=== PATIENT | female | born 1975 | race Hispanic/Latino ===

== ENCOUNTER 2019-05-13 10:53 | Observation (INO) | payer BC, OTHER ==
[~2019-05-13] VITALS: Ht 170.2 cm; Wt 146.4 kg
[2019-05-13 11:16] LABS: APPEARANCE,URINE Cloudy (CLEAR); BILIRUBIN,URINE Negative (NEGATIVE); COLOR,URINE Yellow (YELLOW); GLUCOSE, URINE (UA) Negative (NEGATIVE); KETONES,URINE Negative (NEGATIVE); LEUKOCYTE ESTERASE ,URINE Small (NEGATIVE); NITRATE,URINE Negative (NEGATIVE); OCCULT BLOOD,URINE Small (NEGATIVE); PH,URINE 5.5 (5.0-8.0); PROTEIN,URINE POS 1+ mg/dL (NEGATIVE)
[2019-05-13] MEDS ORDERED: MORPHINE SULFATE 4 MG/1ML SYG ONE ×2 (11:24→14:26)
[2019-05-13] MEDS ORDERED: ONDANSETRON HCL 4 MG/2 ML VIAL ONE (11:24)
[2019-05-13] MEDS ORDERED: SODIUM CHLORIDE 0.9% 1000ML 1,000 ML IV ONE (11:27)
[2019-05-13 11:28] LABS: BASOPHILS % (AUTO) 0.9 % (0.0-5.0); EOSINOPHILS % (AUTO) 1.2 % (0.0-8.0); HEMATOCRIT 36.5 % (36-48); LYMPHOCYTES % (AUTO) 22.4 % (21.0-51.0); MEAN CORPUSCULAR HEMOGLOBIN 30.7 pg (27.0-33.0); MEAN CORPUSCULAR HGB CONC 35.3 g/dL (32.0-36.0); MEAN CORPUSCULAR VOLUME 86.8 fL (79-99); MONOCYTES % (AUTO) 9.2 % (3.0-13.0); NEUTROPHILS % (AUTO) 66.3 % (40.0-77.0); PLATELET COUNT (AUTO) 256 K/uL (130-400); RED CELL DISTRIBUTION WIDTH 13.5 % (11.0-15.5); WHITE BLOOD COUNT (AUTO) 8.1 K/uL (4.8-10.8)
[2019-05-13 11:33] LABS: CREATININE 0.8 mg/dL (0.5-1.5); POTASSIUM 4.6 mmol/L (3.5-5.1)
[2019-05-13 11:35] LABS: BACTERIA,URINE Rare /HPF (None Seen); SQUAMOUS EPITHELIAL CELL,UR Few /HPF (0-2); WBC,URINE 0-1 /HPF (0-1)
[2019-05-13 11:39] LABS: ALBUMIN 2.9 g/dL (3.5-5.0); BILIRUBIN,TOTAL 0.8 mg/dL (0.2-1.0); TOTAL PROTEIN, SERUM 7.6 g/dL (6.0-8.3)
[2019-05-13] MEDS ORDERED: 1/2 NORMAL SALINE 1,000 ML IV ONE (16:52)
[2019-05-13 17:05] VITALS: BP 163/97
[2019-05-13] MEDS ORDERED: 1/2 NORMAL SALINE 1,000 ML IV SCH (17:30)
[2019-05-13] MEDS ORDERED: MORPHINE-NS 50 MG/50 ML 50 ML IV PRN ×2 (17:30)
[2019-05-13] MEDS ORDERED: ONDANSETRON HCL 4 MG/2 ML VIAL IVP PRN (17:30)
[2019-05-13] MEDS ORDERED: NALOXONE HCL 0.4 MG/1 ML ML IVP PRN ×2 (17:30)
[2019-05-13] MEDS ORDERED: ONDANSETRON HCL 4 MG/2 ML VIAL IV PRN (17:30)
--- NOTE | 2019-05-13 19:00 | NUR ---
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
[2019-05-13 20:00] VITALS: BP 158/92
[2019-05-13 23:55] VITALS: BP 145/83
[2019-05-14] VITALS (27 sets, daily range): BP systolic 115–199; BP diastolic 58–132
[2019-05-14 05:50] LABS: EOSINOPHILS % (AUTO) 1.5 % (0.0-8.0); HEMATOCRIT 35.7 % (36-48); LYMPHOCYTES % (AUTO) 22.9 % (21.0-51.0); MEAN CORPUSCULAR HEMOGLOBIN 29.9 pg (27.0-33.0); MONOCYTES % (AUTO) 8.3 % (3.0-13.0); NEUTROPHILS % (AUTO) 66.3 % (40.0-77.0); NUCLEATED RED BLOOD CELLS 0.1 % (0.0-0.19); PLATELET COUNT (AUTO) 267 K/uL (130-400); RED BLOOD CELL COUNT(AUTO) 4.06 MIL/uL (4.00-5.50); RED CELL DISTRIBUTION WIDTH 13.8 % (11.0-15.5); WHITE BLOOD COUNT (AUTO) 7.3 K/uL (4.8-10.8)
[2019-05-14 05:53] LABS: CREATININE 0.9 mg/dL (0.5-1.5); POTASSIUM 4.3 mmol/L (3.5-5.1)
[2019-05-14 05:58] LABS: INR 0.97 (0.85-1.15); PROTHROMBIN TIME 10.2 SEC (9.6-11.6)
[2019-05-14] MEDS ORDERED: SUCCINYLCHOLINE 200MG/10ML SYR ONE (11:09)
[2019-05-14] MEDS ORDERED: LIDOCAINE PF 2% 5ML ABBOJECT ONE (11:09)
[2019-05-14] MEDS ORDERED: DEXAMETHASONE SOD PHOSPHATE 10MG/ML 1ML VIAL ONE ×2 (11:09→13:13)
[2019-05-14] MEDS ORDERED: MIDAZOLAM HCL 1 MG/ML 2ML VIAL ONE (11:10)
--- NOTE | 2019-05-14 11:13 | NUR ---
CM NOTE PATIENT CURRENTLY IN OBSERVATION, MEETS IN PATIENT. PER DR. PERDOMO, KEEP PATIENT IN OBSERVATION UNLESS ORDERED OTHERWISE. PATIENT REMAINS OBSERVATION STATUS. DCP HOME
[2019-05-14] MEDS ORDERED: ONDANSETRON HCL 4 MG/2 ML VIAL ONE (11:14)
[2019-05-14] MEDS ORDERED: PROPOFOL 10 MG/ML 20ML VIAL IV ONE (11:15)
[2019-05-14] MEDS ORDERED: NEOSTIGMINE 5MG/5ML SYR IV ONE (11:15)
[2019-05-14] MEDS ORDERED: ROCURONIUM 10MG/1ML SYR 10 MG/ML ML ONE (11:15)
[2019-05-14] MEDS ORDERED: FENTANYL CITRATE PF 50 MCG/1 ML 2ML VIAL ONE (11:15)
[2019-05-14] MEDS ORDERED: GLYCOPYRROLATE 1 MG/5 ML SYRINGE ONE (11:15)
[2019-05-14] MEDS ORDERED: CEFAZOLIN SODIUM 1 GM VIAL ONE (12:46)
[2019-05-14] MEDS ORDERED: IOHEXOL-350 50ML VIAL IV ONE (12:59)
[2019-05-14] MEDS ORDERED: ACETAMINOPHEN 325 MG TAB PO PRN (15:45)
--- NOTE | 2019-05-14 16:12 | NUR ---
DC PLAN PER PATIENT, IS INDEPENDENT, LIVES WITH HER PARENTS AND 3 CHILDREN, NO PROVIDER, NO MEDICAL EQUIPMENT, AND FEELS SAFE TO RETURN HOME ONCE CLINICALLY CLEARED. Addendum: 05/14/19 at 1613 by CARL RAY RN CM Amended: Links added.
[2019-05-14] MEDS: ACETAMINOPHEN-CODEINE 300/30MG TAB PO PRN ×2 (16:35→21:21)
--- NOTE | 2019-05-14 20:30 | NUR ---
BLOOD PRESSURE BLOOD PRESSURE TAKEN SBP 196 DBP 88, OTHER VITAL SIGNS WITHIN NORMAL RANGE. PATIENT ASSSESSED AND SEEN. PT DENIED ANY DYSPNEA, NO NAUSEA NOR VOMITING, NO CHEST PAIN NOR DIZZINESS NOR ANY COMPLAINT OF PAIN. PAGED MD PERDOMO. PENDING FOR CALL BACK
[2019-05-14] MEDS: LISINOPRIL 20 MG TABLET PO SCH (21:00)
[2019-05-14] MEDS ORDERED: LISINOPRIL 20 MG TABLET ONE (21:13)
[2019-05-14] MEDS ORDERED: CLONIDINE HCL 0.1 MG TABLET ONE (21:14)
[2019-05-14] MEDS ORDERED: CLONIDINE HCL 0.1 MG TABLET PO PRN (21:15)
--- NOTE | 2019-05-15 03:15 | NUR ---
REPORT REPORT RECEIVED FROM JACOB MONTGOMERY. TOOK OVER CARE OF PT. NURSE'S ROUNDS DONE. PT IS RESTING WELL IN ROOM. NO DISTRESS NOTED. NO CONCERNS VERBALIZED. KEPT COMFORTABLE. CALL LIGHT WITHIN REACH. WILL MONITOR PT.
--- NOTE | 2019-05-15 03:15 | NUR ---
GAVE REPORT GAVE REPORT TO JACOB ARGUELLO, PT IN NO RESPIRATORY DISTRESS, DENIED ANY CHEST ON NOR DYSPNEA NOR ANY COMPLAINTS OF PAIN
[2019-05-15 03:56] VITALS: BP 121/49
[2019-05-15 04:14] LABS: HEMATOCRIT 37.7 % (36-48); MEAN CORPUSCULAR HGB CONC 34.5 g/dL (32.0-36.0); MEAN CORPUSCULAR VOLUME 86.9 fL (79-99); NUCLEATED RED BLOOD CELLS 0.1 % (0.0-0.19); PLATELET COUNT (AUTO) 271 K/uL (130-400); RED BLOOD CELL COUNT(AUTO) 4.34 MIL/uL (4.00-5.50); RED CELL DISTRIBUTION WIDTH 13.8 % (11.0-15.5); WHITE BLOOD COUNT (AUTO) 15.3 K/uL (4.8-10.8)
[2019-05-15 04:21] LABS: POTASSIUM 4.8 mmol/L (3.5-5.1)
--- NOTE | 2019-05-15 06:01 | NUR ---
F/C BHAKTA CATHETER DISCONTINUED, INTACT. NO COMPLAINTS OF PAINS. URINE OUTPUT STILL PINKISH IN COLOR. INSTRUCTED PT TO INFORM STAFF OF FIRST URINE OUTPUT FOR INSPECTION. PT DUE TO VOID FOR MORE CARE.
[2019-05-15] MEDS ORDERED: LISI-613 PO (06:38)
--- NOTE | 2019-05-15 07:13 | NUR ---
MD DR SOLIZ IN TO SEE PT. STATED TO FOLLOW D/C ORDERS GIVEN MY DOCTORS.
[2019-05-15] MEDS: LISINOPRIL 20 MG TABLET PO SCH (07:53)
[2019-05-15 08:00] VITALS: BP_SYST 167; BP_SYST 175; BP_DIAS 101; BP_DIAS 102
== END 2019-05-15 10:15 | disposition home or self-care (01) ==
LOC: EDH 10:53 → EDHIP 10:54 → 3CH 16:34
PROVIDERS: ADMIT Internal Medicine; ATTEND Internal Medicine
DX: N13.2 Hydronephrosis with renal and ureteral calculous obstruction (principal); I10 Essential (primary) hypertension; Z87.891 Personal history of nicotine dependence; Z85.528 Personal history of other malignant neoplasm of kidney; Z90.5 Acquired absence of kidney; Z79.899 Other long term (current) drug therapy
CPT/HCPCS: 36415 ×3; 52356; 74176; 74420; 80048 ×2; 80053; 81001; 81025; 83690; 85025 ×2; 85027; 85610; 96365; 99284; A4358; C1758; C1769; C2617; G0378 ×44; J0330; J0690; J1100 ×2; J2001; J2250; J2270 ×3; J2405 ×2; J2704; J2710; J3010; J3490; J7030; Q9967

== ENCOUNTER → 2019-05-21 | Outpatient (CLI) | payer BC ==
[~2019-05-21] MED LIST: LISI-613 PO
== END | disposition home or self-care (01) ==
LOC: RAH 12:52
PROVIDERS: ATTEND Urology
DX: N20.0 Calculus of kidney (principal); Z90.5 Acquired absence of kidney; Z96.89 Presence of other specified functional implants
CPT/HCPCS: 74018; 76100

== ENCOUNTER 2019-06-10 05:44 | Day surgery (SDC) | payer BC ==
[2019-06-06 16:08] LABS: HEMATOCRIT 39.5 % (36-48); MEAN CORPUSCULAR HGB CONC 32.4 g/dL (32.0-36.0); MEAN CORPUSCULAR VOLUME 89.4 fL (79-99); PLATELET COUNT (AUTO) 349 K/uL (130-400); RED BLOOD CELL COUNT(AUTO) 4.42 MIL/uL (4.00-5.50); RED CELL DISTRIBUTION WIDTH 13.4 % (11.0-15.5); WHITE BLOOD COUNT (AUTO) 9.8 K/uL (4.8-10.8)
[2019-06-06 16:11] LABS: APPEARANCE,URINE Cloudy (CLEAR); BILIRUBIN,URINE Negative (NEGATIVE); COLOR,URINE Orange (YELLOW); GLUCOSE, URINE (UA) Negative (NEGATIVE); KETONES,URINE Negative (NEGATIVE); LEUKOCYTE ESTERASE ,URINE Moderate (NEGATIVE); NITRATE,URINE Negative (NEGATIVE); OCCULT BLOOD,URINE Large (NEGATIVE); PROTEIN,URINE POS 2+ mg/dL (NEGATIVE); UROBILINOGEN,URINE 0.2 mg/dL (0.2-1.0)
[2019-06-06 16:19] LABS: POTASSIUM 3.7 mmol/L (3.5-5.1)
[2019-06-06 16:21] LABS: BACTERIA,URINE Moderate /HPF (None Seen); MUCUS,URINE Few LPF (None Seen); RBC,URINE 26-50 /HPF (0-1); SQUAMOUS EPITHELIAL CELL,UR Few /HPF (0-2)
[2019-06-06 16:23] LABS: INR 0.95 (0.85-1.15); PARTIAL THROMBOPLASTIN TIME 26.8 SEC (26.3-35.5)
--- NOTE | 2019-06-06 16:31 | NUR ---
ABNORMAL EKG message for Dr Vasquez to return call Related to abnormal EKG and blood pressure 170/90 call back pending
--- NOTE | 2019-06-06 17:27 | NUR ---
Abnormal EKG Dr Vasquez reviewed Ekg no new orders
[2019-06-09] MEDS: CEFAZOLIN SODIUM 1 GM VIAL IVP SCH (09:45)
--- NOTE | 2019-06-09 16:58 | NUR ---
UA AND C&S REPORTED UA AND URINE CULTURE NO NEW ORDERS PER PAWAN FOR DR FAN
[2019-06-10] VITALS (13 sets, daily range): BP systolic 128–160; BP diastolic 74–99
[~2019-06-10] VITALS: Ht 170.2 cm; Wt 141.0 kg
[~2019-06-10 05:44] MED LIST changes: +LACTATED RINGERS 1000ML 1,000 ML IV SCH
--- NOTE | 2019-06-10 06:36 | NUR ---
SX SCD APPLIED TO BLE
[2019-06-10] MEDS ORDERED: MIDAZOLAM HCL 1 MG/ML 2ML VIAL ONE (06:47)
[2019-06-10] MEDS ORDERED: ROCURONIUM 10MG/1ML SYR 10 MG/ML ML ONE (06:47)
[2019-06-10] MEDS ORDERED: LIDOCAINE PF 2% 5ML ABBOJECT ONE (06:47)
[2019-06-10] MEDS ORDERED: PROPOFOL 10 MG/ML 20ML VIAL IV ONE (06:47)
[2019-06-10] MEDS ORDERED: FENTANYL CITRATE PF 50 MCG/1 ML 2ML VIAL ONE ×2 (06:48→07:23)
[2019-06-10] MEDS ORDERED: ONDANSETRON HCL 4 MG/2 ML VIAL ONE (06:49)
[2019-06-10] MEDS: CEFAZOLIN SODIUM 1 GM VIAL IVP SCH (07:00)
[2019-06-10] MEDS ORDERED: PHENYLEPHRINE HCL 10 MG/ML 1ML VIAL IV ONE (07:25)
--- NOTE | 2019-06-10 08:51 | NUR ---
ASSESSMENT RECEIVED PT FROM PACU STAFF JACOB MAHONEY. MERCEDESO X3 . DENIES ANY PAIN. FAMILY AT BEDSIDE. SECURITY CALLED FOR PTS BELONGINGS.
--- NOTE | 2019-06-10 09:40 | NUR ---
DISCHARGE ORAL AND WRITTEN DISCHARGE INSTRUCTIONS GIVEN TO PT AND PTS FAMILY. INSTRUCTED ON IMPORTANCE OF STRAINING ALL URINE AND KEEPING ANY SPECIMENS RETAINED IN GIVEN SPECIMEN CUP. PT AND FAMILY VERBALIZED UNDERSTANDING.
== END 2019-06-10 09:50 | disposition home or self-care (01) ==
LOC: DAH 05:44
PROVIDERS: ATTEND Urology
DX: N20.0 Calculus of kidney (principal); I10 Essential (primary) hypertension; Z90.5 Acquired absence of kidney; Z98.51 Tubal ligation status; Z79.01 Long term (current) use of anticoagulants; Z79.899 Other long term (current) drug therapy; Z98.890 Other specified postprocedural states
CPT/HCPCS: 36415; 50590; 71046; 80048; 81001; 85027; 85610; 85730; 87088; 93005; A4215; A4221; A4222; A4223; A4600; A4663; A6260; J0690; J2001; J2250; J2370; J2405; J2704; J3010 ×2; J7120 ×2

== ENCOUNTER 2020-08-02 06:32 | Emergency (ER) | payer BC, OTHER ==
[~2020-08-02 06:32] MED LIST changes: -LACTATED RINGERS 1000ML 1,000 ML IV SCH; -LISI-613 PO; +LISI20TA24 PO
[2020-08-02] MEDS ORDERED: ORPHENADRINE CITRATE 30 MG/ML ML ONE (07:33)
[2020-08-02] MEDS ORDERED: KETOROLAC TROMETHAMINE 30MG/ML ONE (07:33)
== END 2020-08-02 09:55 | disposition home or self-care (01) ==
LOC: EDH 06:32
DX: S80.11XA Contusion of right lower leg, initial encounter (principal); S50.12XA Contusion of left forearm, initial encounter; Z98.51 Tubal ligation status; V49.49XA Driver injured in collision with other motor vehicles in traffic accident, initial encounter; Y93.9 Activity, unspecified; Y92.89 Other specified places as the place of occurrence of the external cause; Y99.8 Other external cause status
CPT/HCPCS: 73090; 73590; 96372 ×2; 99284; J1885; J2360

== ENCOUNTER 2021-05-02 08:26 | Emergency (ER) | payer OTHER ==
[~2021-05-02] VITALS: Ht 170.2 cm; Wt 140.6 kg
[2021-05-02 08:58] LABS: BASOPHILS % (AUTO) 0.6 % (0.0-5.0); EOSINOPHILS % (AUTO) 2.7 % (0.0-8.0); HEMATOCRIT 35.3 % (36-48); LYMPHOCYTES % (AUTO) 16.8 % (21.0-51.0); MEAN CORPUSCULAR HEMOGLOBIN 28.2 pg (27.0-33.0); MEAN CORPUSCULAR HGB CONC 32.6 g/dL (32.0-36.0); MEAN CORPUSCULAR VOLUME 86.5 fL (79-99); MONOCYTES % (AUTO) 8.6 % (3.0-13.0); PLATELET COUNT (AUTO) 406 K/uL (130-400); RED BLOOD CELL COUNT(AUTO) 4.08 MIL/uL (4.00-5.50); RED CELL DISTRIBUTION WIDTH 13.2 % (11.0-15.5)
[2021-05-02 09:01] LABS: APPEARANCE,URINE Cloudy (CLEAR); BILIRUBIN,URINE Negative (NEGATIVE); COLOR,URINE Yellow (YELLOW); GLUCOSE, URINE (UA) Negative (NEGATIVE); KETONES,URINE Negative (NEGATIVE); LEUKOCYTE ESTERASE ,URINE Moderate (NEGATIVE); NITRATE,URINE Positive (NEGATIVE); OCCULT BLOOD,URINE Negative (NEGATIVE); PROTEIN,URINE POS 1+ mg/dL (NEGATIVE)
[2021-05-02 09:09] LABS: HCG,QUAL RESULT NEGATIVE (NEGATIVE)
[2021-05-02 09:14] LABS: BILIRUBIN,TOTAL 0.5 mg/dL (0.2-1.0); CREATININE 1.3 mg/dL (0.5-1.5); POTASSIUM 4.1 mmol/L (3.5-5.1); TOTAL PROTEIN, SERUM 8.6 g/dL (6.0-8.3)
[2021-05-02 09:20] LABS: BACTERIA,URINE Many /HPF (None Seen); RBC,URINE 0-1 /HPF (0-1)
[2021-05-02 09:21] LABS: SQUAMOUS EPITHELIAL CELL,UR Few /HPF (0-2)
[2021-05-02] MEDS ORDERED: FAMOTIDINE 20MG VIAL IV ONE (09:30)
[2021-05-02] MEDS ORDERED: MORPHINE 4 MG SYG IV ONE (09:30)
[2021-05-02] MEDS ORDERED: CEFTRIAXONE 1G VIAL IVP SCH (10:30)
[2021-05-02] MEDS ORDERED: SUCR1TAB28 PO (11:42)
[2021-05-02] MEDS ORDERED: DOCU-116 PO (11:42)
[2021-05-02] MEDS ORDERED: FAMO-136 PO (11:42)
[2021-05-02] MEDS ORDERED: CEFI400C PO (11:42)
[2021-05-02 12:01] VITALS: BP 134/75
== END 2021-05-02 12:19 | disposition home or self-care (01) ==
LOC: EDH 08:26
DX: N30.00 Acute cystitis without hematuria (principal); R10.13 Epigastric pain; E11.9 Type 2 diabetes mellitus without complications; I10 Essential (primary) hypertension; Z87.442 Personal history of urinary calculi; Z90.5 Acquired absence of kidney; Z85.528 Personal history of other malignant neoplasm of kidney; Z79.899 Other long term (current) drug therapy
CPT/HCPCS: 36415; 74176; 80053; 81001; 81025; 83690; 85025; 87077; 87088; 87186; 96374; 96375; 99284; J0696; J2270; J3490

== ENCOUNTER 2021-10-19 13:41 | Emergency (ER) | payer OTHER ==
[~2021-10-19] VITALS: Ht 170.2 cm; Wt 140.6 kg
[~2021-10-19 13:41] MED LIST changes: +CEFI400C PO; +DOCU-116 PO; +FAMO-136 PO; +SUCR1TAB28 PO
[2021-10-19 14:13] LABS: HEMATOCRIT 36.3 % (36-48); MEAN CORPUSCULAR HEMOGLOBIN 27.3 pg (27.0-33.0); MEAN CORPUSCULAR HGB CONC 31.1 g/dL (32.0-36.0); MEAN CORPUSCULAR VOLUME 87.7 fL (79-99); PLATELET COUNT (AUTO) 350 K/uL (130-400); RED BLOOD CELL COUNT(AUTO) 4.14 MIL/uL (4.00-5.50); RED CELL DISTRIBUTION WIDTH 13.7 % (11.0-15.5); WHITE BLOOD COUNT (AUTO) 9.4 K/uL (4.8-10.8)
[2021-10-19 14:22] LABS: CREATININE 1.1 mg/dL (0.5-1.5); POTASSIUM 4.7 mmol/L (3.5-5.1)
[2021-10-19 14:27] LABS: ALBUMIN 2.9 g/dL (3.5-5.0); BILIRUBIN,TOTAL 0.4 mg/dL (0.2-1.0); TOTAL PROTEIN, SERUM 7.8 g/dL (6.0-8.3)
[2021-10-19 15:03] LABS: BASOPHILS % (MANUAL) 1 % (0-2); EOSINOPHILS % (MANUAL) 8 % (1-6); LYMPHOCYTES % (MANUAL) 16 % (22-44); MAN.DIFF COMMENT-IMPRESSION MANUAL DIFFERENTIAL; MONOCYTES % (MANUAL) 5 % (2-9); REACTIVE LYMPHOCYTES 9 % (0-0); SEGMENTED NEUTROPHILS % 61 % (40-70)
[2021-10-19 15:07] LABS: PLATELET MORPHOLOGY COMMENT LARGE PLTS PRESENT
[2021-10-19 15:23] VITALS: BP 164/92
[2021-10-19 17:33] LABS: APPEARANCE,URINE Clear (CLEAR); BILIRUBIN,URINE Negative (NEGATIVE); COLOR,URINE Yellow (YELLOW); GLUCOSE, URINE (UA) Negative (NEGATIVE); KETONES,URINE Negative (NEGATIVE); LEUKOCYTE ESTERASE ,URINE Trace (NEGATIVE); NITRATE,URINE Negative (NEGATIVE); OCCULT BLOOD,URINE Negative (NEGATIVE); PROTEIN,URINE Trace mg/dL (NEGATIVE)
[2021-10-19 17:49] LABS: RBC,URINE 0-1 /HPF (0-1)
[2021-10-19 17:50] LABS: BACTERIA,URINE Few /HPF (None Seen); SQUAMOUS EPITHELIAL CELL,UR Moderate /HPF (0-2)
[2021-10-19 17:51] LABS: MUCUS,URINE Rare LPF (None Seen)
[2021-10-19] MEDS ORDERED: MORPHINE 4 MG SYG IVP ONE (18:00)
[2021-10-19] MEDS ORDERED: 0.9%NACL 1000ML 1,000 ML IV ONE (18:00)
[2021-10-19] MEDS ORDERED: ONDANSETRON 4MG INJ IVP ONE (18:00)
[2021-10-19] MEDS ORDERED: ACET-66 PO (18:21)
[2021-10-19] MEDS ORDERED: CYCL-309 PO (18:21)
== END 2021-10-19 18:50 | disposition home or self-care (01) ==
LOC: EDH 13:41
DX: R10.9 Unspecified abdominal pain (principal); M54.50 Low back pain, unspecified; I12.9 Hypertensive chronic kidney disease with stage 1 through stage 4 chronic kidney disease, or unspecified chronic kidney disease; E11.22 Type 2 diabetes mellitus with diabetic chronic kidney disease; N18.9 Chronic kidney disease, unspecified; Z87.442 Personal history of urinary calculi; Z98.890 Other specified postprocedural states; Z79.899 Other long term (current) drug therapy
CPT/HCPCS: 36415; 74176; 80053; 81001; 85025; 96374; 96375; 99284; J2270; J2405; J7030